=== PATIENT | male | born 1955 | race Native Hawaiian/Other Pacific Islander ===

== ENCOUNTER 2023-04-04 10:47 | Emergency (ER) | payer OTHER ==
--- NOTE | 2023-04-04 11:13 | ED Physician Documentation ---
PD HPI BACK PAIN - Stated complaint Stated Complaint: BACK SPASM/PX - Chief complaint Chief Complaint: Back Pain - History obtained from History obtained from: Patient - History of Present Illness Timing - onset: Yesterday Timing - details: Abrupt onset, Still present, Waxing and waning Location: Lower (with radiation of it up back. No radiation to the legs nor groin.) Quality: Pain, Spasm Associated symptoms: No: Fever, Weakness, Numbness, Incontinent of urine Improves with: Rest. No: Meds (tried Ibuprofen at home.) Worsened by: Movement, Twisting Contributing factors: Lifting (he was just doing light lifting and bending when back flared in pain with spasms. Has had similr in the past with recurring low back pain due to herniated discs. No sciatica at this time.) Similar symptoms before: Diagnosis (bnack pains and spasms with disc disease.) Recently seen: Not recently seen Review of Systems Constitutional: denies: Fever, Chills Nose: denies: Rhinorrhea / runny nose, Congestion Throat: denies: Sore throat Respiratory: denies: Cough GI: denies: Abdominal Pain : denies: Incontinent Musculoskeletal: reports: Back pain. denies: Neck pain Neurologic: denies: Focal weakness, Numbness PD PAST MEDICAL HISTORY - Past Medical History Past Medical History: No Musculoskeletal: Chronic back pain - Past Surgical History Past Surgical History: Yes General: Appendectomy - Present Medications Home Medications: Ambulatory Orders Medication Instructions Recorded Confirmed HYDROcod/ACETAM 5/325 [[place] 5/325] 1 ea PO Q6H PRN #18 tablet 04/04/23 Meloxicam [Mobic] 7.5 mg PO BID 20 Days #40 tablet 04/04/23 dexAMETHasone [Decadron] 4 mg PO DAILY #5 tablet 04/04/23 tiZANidine [Zanaflex] 4 mg PO BID #30 tablet 04/04/23 - Allergies Allergies/Adverse Reactions: Allergies Allergy/AdvReac Type Severity Reaction Status Date / Time No Known Drug Allergies Allergy Verified 04/04/23 10:57 - Social History Does the pt smoke?: No Smoking Status: Never smoker PD ED PE NORMAL - Vitals Vital signs reviewed: Yes - General General: Alert and oriented X 3, Well developed/nourished, Other (appears uncofmortable with guarding of motion in right lower back. Has tenderness generally in paralumbar muscle without trigger point per se. ) - Cardiac Cardiac: RRR, No murmur - Respiratory Respiratory: Clear bilaterally - Abdomen Abdomen: Soft, Non tender - Back Back: No CVA TTP, No spinal TTP - Derm Derm: Normal color, Warm and dry, No rash - Neuro Neuro: Alert and oriented X 3, No motor deficit, No sensory deficit Results - Vitals Vitals: Oxygen O2 Source Room air PD Medical Decision Making - ED course Complexity details: considered differential (lumbar pain from light lifting with history of back pains. No red flags on history nor exam. Can treat empirically with meds. NO imaging/testing indicated by back pain guidelines. ), d/w patient Departure - Departure Disposition: Home, Self Care Clinical Impression: Acute exacerbation of chronic low back pain Condition: Stable Record reviewed to determine appropriate education?: Yes Instructions: ED Low Back Pain Injury Follow-Up: [facility] [Provider Group] [facility] [place] [Provider Group] [facility] [Provider Group] Prescriptions: dexAMETHasone [Decadron] 4 mg PO DAILY #5 tablet Meloxicam [Mobic] 7.5 mg PO BID 20 Days #40 tablet HYDROcod/ACETAM 5/325 [[place] 5/325] 1 ea PO Q6H PRN #18 tablet PRN Reason: Pain tiZANidine [Zanaflex] 4 mg PO BID #30 tablet Comments: Continue with the physical therapy if you can. Otherwise the stretching and activities they have shown you in the past to continue with those. I would suggest a combination of anti-inflammatories. I would start with dexamethasone steroid anti-inflammatory for the next 5 days and then after that change to the meloxicam nonsteroidal anti-inflammatory twice daily with food for the next few weeks. Tizanidine muscle relaxant twice daily to help with spasms and stiffness. To that add Tylenol 500 to 650 mg 4 times daily with food to help with pain. Use the hydrocodone/acetaminophen at times if needed for worse pain. I sent your prescriptions to your preferred pharmacy. I provided the names of couple of the primary care clinics in [place] and also the orthopedic clinic here in [place]. Call to follow-up with those. See who take the L[employer]I insurance. Follow-up with one of the clinics for ongoing care. I am prescribing a short course of narcotic pain medication for you. These are potentially dangerous and addictive medications that should be used carefully. These medications may constipate you. Take an loag-ody-xshrtte stool softener such as docusate twice daily with plenty of water while taking these medications. If you go 24 hours without a bowel movement, take [id number] MiraLAX, per package instructions. Do not drink or drive while taking these medications. If you received narcotic or sedating medications while in the emergency department do not drive for 24 hours. Store this medication in a safe, secure place and out of reach of children. It is a violation of federal law to give or sell this medication to another person or to use in a manner other than prescribed. The ED will not refill narcotic prescriptions, including prescriptions lost or stolen. You can dispose of unwanted medications at the [facility]'s office or at several pharmacies such as [facility]. Discharge Date/Time: 04/04/23 12:43
[2023-04-04] MEDS ORDERED: methocarbamoL 500 MG TABLET PO STA (11:54)
[2023-04-04] MEDS ORDERED: ACETAMINOPHEN 325 MG TABLET PO STA (11:54)
[2023-04-04] MEDS ORDERED: KETOROLAC 30 MG/ML VIAL IM STA (11:54)
[2023-04-04 12:45] VITALS: BP 136/89; O2SAT 97
== END 2023-04-04 12:43 | disposition home or self-care (01) ==
LOC: ED 10:47
DX: M54.50 Low back pain, unspecified (principal); X50.9XXA Other and unspecified overexertion or strenuous movements or postures, initial encounter; G89.29 Other chronic pain
CPT/HCPCS: 96372; 99283; 99284; A9270